=== PATIENT | female | born 1985 | race Caucasian/White ===

== ENCOUNTER → 2018-03-03 | Outpatient (CLI) | payer SELFPAY ==
[~2018-03-03] MED LIST: CIP500 PO; DEXT15CA22 PO; GADOBENATE 529MG/1ML 15ML VIAL IVP ONE; HYDR-4309 PO; KET10 PO; PHENA200 PO
--- NOTE | 2018-03-03 16:14 | RADIOLOGY IMAGING REPORT ---
FACILITY: [facility] PATIENT NAME: Melissa Han : 1985 MR: [id number] V: [id number] EXAM DATE: ORDERING PHYSICIAN: [facility] TECHNOLOGIST: Location: [facility] - [place] Patient: Melissa Han : 1985 Visit/Account:[id number] Date of Sevice: 03/03/2018 EXAMINATION: MRI brain without IV contrast MRI brain with IV contrast MRI face without IV contrast MRI face with IV contrast HISTORY: Possible left trigeminal neuralgia, history of left TMJ disease. Dental extraction 10/2016 . COMPARISON: CT head and facial bones from 05/05/2017. TECHNIQUE: Multi-planar, multi-sequence brain and face MRI was performed before and after IV gadolin ium. CONTRAST: 15 mL of IV MultiHance gadolinium. FINDINGS: MRI BRAIN: Brain volume: Normal. Sagittal midline structures: Normal. Ventricles: Normal. Acute ischemic changes: No diffusion restriction present to suggest acute ischemia. Hemorrhage: No acute hemorrhage or hemosiderin staining. Masses/edema: None. Enhancement: There is no abnormal intracranial enhancement. Foster-white: Negative. White matter: Normal. Vessels: Normal. Extra-axial: None. Calvarium/scalp: Negative. Skull base: Negative. MRI FACE: Mass/lesion/enhancement: There is mild marrow edema in the left mandible posterior alveolar ridge at site of previous dental extraction. The cortex is slightly thickened at and just posterior to this a shilo, and there is mild patchy enhancement. In retrospect on previous CT there was some sclerosis in this location and slight thickening of the cortex. Allowing for difference in technique the area aff ected is unchanged in size. Meckel's caves are clear. There is no abnormal enhancement at the skull base or in the deep facial s oft tissues. Visualized sinuses/orbits: Negative. 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 IMPRESSION: 1. No acute infarct, hemorrhage or intracranial mass lesion. 2. Mild marrow edema and enhancement of the left mandible posterior alveolar ridge at site of previo us dental extraction. In retrospect this is is similar in size to mild sclerosis on CT. This could be reactive change from previous dental extraction, or could indicate ongoing mild inflammation, and this affects the course of the left inferior alveolar nerve. Although chronic osteomyelitis could be considered in the correct clinical setting, this is less likely as the abnormality has not progresse d. 3. No other abnormality along the course of the left trigeminal nerve. Report Dictated By: Ivania Lobo MD at 03/03/2018 3:53 PM Report E-Signed By: Ivania Lobo MD at 03/03/2018 4:10 PM [id number]
--- NOTE | 2018-03-03 16:15 | RADIOLOGY IMAGING REPORT ---
FACILITY: [facility] - [place] PATIENT NAME: Melissa Han : 1985 MR: [id number] V: [id number] EXAM DATE: ORDERING PHYSICIAN: [facility] TECHNOLOGIST: Location: [facility] [place] Patient: Melissa Han : 1985 Visit/Account:[id number] Date of Sevice: 03/03/2018 EXAMINATION: MRI brain without IV contrast MRI brain with IV contrast MRI face without IV contrast MRI face with IV contrast HISTORY: Possible left trigeminal neuralgia, history of left TMJ disease. Dental extraction 10/2016 . COMPARISON: CT head and facial bones from 05/05/2017. TECHNIQUE: Multi-planar, multi-sequence brain and face MRI was performed before and after IV gadolin ium. CONTRAST: 15 mL of IV MultiHance gadolinium. FINDINGS: MRI BRAIN: Brain volume: Normal. Sagittal midline structures: Normal. Ventricles: Normal. Acute ischemic changes: No diffusion restriction present to suggest acute ischemia. Hemorrhage: No acute hemorrhage or hemosiderin staining. Masses/edema: None. Enhancement: There is no abnormal intracranial enhancement. Foster-white: Negative. White matter: Normal. Vessels: Normal. Extra-axial: None. Calvarium/scalp: Negative. Skull base: Negative. MRI FACE: Mass/lesion/enhancement: There is mild marrow edema in the left mandible posterior alveolar ridge at site of previous dental extraction. The cortex is slightly thickened at and just posterior to this a shilo, and there is mild patchy enhancement. In retrospect on previous CT there was some sclerosis in this location and slight thickening of the cortex. Allowing for difference in technique the area aff ected is unchanged in size. Meckel's caves are clear. There is no abnormal enhancement at the skull base or in the deep facial s oft tissues. Visualized sinuses/orbits: Negative. 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 IMPRESSION: 1. No acute infarct, hemorrhage or intracranial mass lesion. 2. Mild marrow edema and enhancement of the left mandible posterior alveolar ridge at site of previo us dental extraction. In retrospect this is is similar in size to mild sclerosis on CT. This could be reactive change from previous dental extraction, or could indicate ongoing mild inflammation, and this affects the course of the left inferior alveolar nerve. Although chronic osteomyelitis could be considered in the correct clinical setting, this is less likely as the abnormality has not progresse d. 3. No other abnormality along the course of the left trigeminal nerve. Report Dictated By: Ivania Lobo MD at 03/03/2018 3:53 PM Report E-Signed By: Ivania Lobo MD at 03/03/2018 4:10 PM WSN:[id number]
== END ==
LOC: MRI 12:23
DX: R93.0 Abnormal findings on diagnostic imaging of skull and head, not elsewhere classified (principal)
CPT/HCPCS: 70543; 70553; A9577